=== PATIENT | female | born 1930 | race Caucasian/White ===

== ENCOUNTER 2016-08-16 00:11 | Emergency (ER) | payer MEDICARE, BC, MEDICAID ==
[2016-08-16 00:29] VITALS: BP 148/74
[2016-08-16] MEDS ORDERED: traMADol 50 MG Tab PO ONE (01:34)
[2016-08-16] MEDS ORDERED: Acetaminophen 325 MG Tab PO ONE (01:35)
--- NOTE | 2016-08-16 01:42 | EDM.PDOC ---
ED UPPER BACK/NECK PAIN/INJURY - General Chief Complaint: Back Pain or Injury Stated Complaint: COMING BY AMBULANCE Time Seen by Provider: 08/16/16 00:20 Source of Information: Reports: Patient History Limitations: Reports: No limitations - History of Present Illness INITIAL COMMENTS - FREE TEXT/NARRATIVE: Ed via [facility] with c/o right upper back pain, Reports bumped back on back of toilet 2 weeks ago and pain worse tonight, noted lump to area on back. Location: Reports: upper, paraspinal - Related Data Allergies/ADRs: Allergies Allergy/AdvReac Type Severity Reaction Status Date / Time acetaminophen Allergy Intermediate Nervousness Verified 08/16/16 00:13 [From Darvocet-N 100] propoxyphene napsylate Allergy Intermediate Nervousness Verified 08/16/16 00:13 [From Darvocet-N 100] amlodipine besylate Allergy Mild Nausea Verified 08/16/16 00:13 [From Norvasc] oxycodone HCl [From Percocet] Allergy Mild Nausea Verified 08/16/16 00:13 paroxetine HCl [From Paxil] Allergy Mild Nausea Verified 08/16/16 00:13 metaxalone [From Skelaxin] Allergy Nausea Verified 08/16/16 00:13 metaxalone Allergy Cannot Uncoded 08/16/16 00:13 Remember Home Meds: Home Meds Aspirin [Halfprin] 1 tab PO DAILY 09/07/13 [History] traMADol [Ultram] 1 - 2 tab PO Q8HR PRN 09/07/13 [History] Digoxin [Digox] 1 tab PO DAILY 03/04/14 [History] Rosuvastatin [Crestor] 20 mg PO BEDTIME 03/04/14 [History] Lutein/Minerals/Vit A,C & E [Ocuvite] 1 tab PO DAILY 11/02/14 [History] glipiZIDE [Glipizide ER] 5 mg PO DAILY 11/02/14 [History] Albuterol [Proair HFA] 2 puff INH Q6HR PRN 11/19/14 [History] Carvedilol [Coreg] 0.5 tab PO BIDMEALS 11/19/14 [History] LORazepam 1 tab PO BID PRN 11/19/14 [History] Omeprazole 1 cap PO ACBREAKFAST 04/03/15 [History] Warfarin Sodium [Jantoven] 1.5 mg PO ASDIRECTED 04/03/15 [History] Furosemide [Lasix] 60 tab PO BID 04/30/15 [History] Lisinopril [Prinivil] 1 tab PO DAILY 04/30/15 [History] Calcitriol [Rocaltrol] 1 tab PO DAILY 05/07/15 [History] Cinacalcet [Sensipar] 1 tab PO ASDIRECTED 05/07/15 [History] Moxifloxacin [Vigamox 0.5% Ophth Soln] 1 drop EYERT QID 05/07/15 [History] Carboxymethylcellulose Sodium [Refresh Tears] 1 drop EYEBOTH TID 07/23/15 [ History] Hydrocortisone [Anusol-HC] 1 squirt TOP DAILY PRN 07/23/15 [History] Acetaminophen [Mapap] 500 mg PO PRN 08/16/16 [History] Allopurinol [Zyloprim] 200 mg PO DAILY 08/16/16 [History] Morton-3/DHA/Epa/Fish Oil [Fish Oil 1,000 mg Softgel] 1 each PO DAILY 08/16/16 [ History] Past Medical History HEENT History: Reports: Cataract, Other (see below) Other HEENT History: Is on antibiodics for dental infection. Cardiovascular History: Reports: Afib, CAD, Cardiomyopathy, Heart Failure, High cholesterol, Hypertension, Other (see below) Other Cardiovascular History: Pt states she had "brief heart attack" during past hospital/ER admission. 11/18/14 Pt states she was just in [place] and had "some work done on my heart". Pt unsure exactly what was done. 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: Musculoskeletal History: Reports: Back pain, chronic Neurological History: Reports: Vertigo, Other (see below) Other Neuro History: CEREBROVASCULAR DISEASE Psychiatric History: Reports: Depression Endocrine/Metabolic History: Reports: Diabetes, type II, Hyperparathyroidism, Osteoporosis Hematologic History: Reports: None Immunologic History: Reports: None Oncologic (Cancer) History: Reports: None Dermatologic History: Reports: None - Past Surgical History HEENT Surgical History: Reports: Cataract surgery, Oral surgery GI Surgical History: Reports: Appendectomy, Cholecystectomy Female Surgical History: Reports: Tubal ligation Social & Family History - Family History Family Medical History: Noncontributory - Tobacco Use Smoking Status *Q: Former Smoker Years of Tobacco use: 50 Used Tobacco, but Quit: No Month Tobacco Last Used: 2-3 years ago Second Hand Smoke Exposure: No - Caffeine Use Caffeine Use: Reports: Coffee, Soda - Alcohol Use Days Per Week of Alcohol Use: 0 - Recreational Drug Use Recreational Drug Use: No - Living Situation & Occupation Living situation: Reports: , alone Occupation: retired ED ROS GENERAL - Review of Systems Review Of Systems: ROS reveals no pertinent complaints other than HPI. ED EXAM, UPPER BACK/NECK PAIN - Physical Exam Exam: See Below Exam Limited By: No limitations General Appearance: alert, mild distress (with movement) Eye Exam: bilateral eye: EOMI Ears Exam: normal external exam Nose Exam: normal inspection Throat/Mouth Exam: Normal inspection Head Exam: atraumatic, normocephalic Neck Exam: non-tender, full range of motion GI/Abdominal: normal bowel sounds, soft Back Exam: muscle spasm, paraspinal tenderness, other ([id number] tender raised area right medial lower scapular arear tender to palpation, slight posterior rib pain with palpation, no bruising visible. ). No: vertebral tenderness Extremities: normal inspection, normal range of motion Neurologic: no motor/sensory deficits, alert, normal mood/affect, oriented x 3 Psychiatric: normal affect, normal mood Skin Exam: Normal color, Warm/dry. No: Ecchymosis Course - Vital Signs Last Recorded V/S: Last Vital Signs Temp 97.4 F 08/16/16 00:15 Pulse 66 08/16/16 00:15 Resp 20 08/16/16 00:15 BP 148/74 H 08/16/16 00:15 Pulse Ox 99 08/16/16 00:15 - Orders/Labs/Meds Meds: Medications Discontinued Medications Generic Name Dose Route Start Last Admin Trade Name Freq PRN Reason Stop Dose Admin Acetaminophen 325 mg 08/16/16 01:35 08/16/16 01:45 Tylenol PO 08/16/16 01:36 325 mg NOW ONE Administration Tramadol HCl 50 mg 08/16/16 01:34 08/16/16 01:44 Ultram PO 08/16/16 01:35 50 mg ONETIME ONE Administration - Radiology Interpretation Free Text/Narrative:: no thoracic or rib fractures Departure - Departure Time of Disposition: 01:36 Disposition: Home, Self-Care 01 Condition: good Clinical Impression: Rib pain on right side Thoracic back pain Qualifiers: Chronicity: acute Back pain laterality: right Qualified Code(s): M54.6 - Pain in thoracic spine Contusion Qualifiers: Encounter type: initial encounter Contusion area: thoracic wall Contusion of thoracic wall detail: back wall of thorax Laterality: right Qualified Code(s): S20.221A - Contusion of right back wall of thorax, initial encounter Forms: ED Department Discharge Additional Instructions: may use heat to aback and rib area for comfort. tylenol 325mg with Tramadol 50mg -100mg every 8 hours as needed Not to exceed 3000mg tylenol / 24 hours
== END 2016-08-16 01:47 | disposition home or self-care (01) ==
LOC: DL.ED 00:11
DX: S20.221A Contusion of right back wall of thorax, initial encounter (principal); R07.81 Pleurodynia; I48.91 Unspecified atrial fibrillation; I25.10 Atherosclerotic heart disease of native coronary artery without angina pectoris; E78.00 Pure hypercholesterolemia, unspecified; I13.0 Hypertensive heart and chronic kidney disease with heart failure and stage 1 through stage 4 chronic kidney disease, or unspecified chronic kidney disease; N18.3 Chronic kidney disease, stage 3 (moderate); I50.9 Heart failure, unspecified; K21.9 Gastro-esophageal reflux disease without esophagitis; F32.9 Major depressive disorder, single episode, unspecified; E11.9 Type 2 diabetes mellitus without complications; Z98.49 Cataract extraction status, unspecified eye; Z98.890 Other specified postprocedural states; Z90.49 Acquired absence of other specified parts of digestive tract; Z98.51 Tubal ligation status; Z79.82 Long term (current) use of aspirin; Z79.899 Other long term (current) drug therapy; Z88.6 Allergy status to analgesic agent; Z88.8 Allergy status to other drugs, medicaments and biological substances; Z87.891 Personal history of nicotine dependence; W19.XXXA Unspecified fall, initial encounter
CPT/HCPCS: 71250; 99284; A9270; 99283

== ENCOUNTER 2019-08-21 21:36 | Emergency (ER) | payer MEDICARE, BC, MEDICAID ==
[2019-08-21 21:46] VITALS: PULSE 95
[2019-08-21] MEDS ORDERED: Sodium Chloride 0.9% 1,000 ML IV ONE (22:02)
[2019-08-21] MEDS ORDERED: Pantoprazole 40 MG Vial IVPUSH ONE (22:03)
[2019-08-21 22:23] LABS: ANION GAP 15.1 mEq/L (7-13)
--- NOTE | 2019-08-21 22:27 | EDM.PDOC ---
ED HPI GENERAL MEDICAL PROBLEM - General Chief Complaint: Gastrointestinal Problem Stated Complaint: AMBULANCE Time Seen by Provider: 08/21/19 21:42 Source of Information: Reports: Patient, EMS History Limitations: Reports: No Limitations - History of Present Illness INITIAL COMMENTS - FREE TEXT/NARRATIVE: ED per [facility] with report of feeling week and black tarry stool this alyssa. Patient states started with black stools on Tues and told nursing at [facility]. Had 3 stools today, Weak after last. No chest pain, Slight Sob today, No cough No fever, No prior episodes. last colonoscopy more than 20 years ago. Decreased appetite, but trying to eat. intermittent abdominal pain around umbilicus around 2pm if she doesn't eat. - Related Data Allergies Allergy/AdvReac Type Severity Reaction Status Date / Time acetaminophen Allergy Intermediate Nervousness Verified 08/21/19 21:40 [From Darvocet-N 100] propoxyphene napsylate Allergy Intermediate Nervousness Verified 08/21/19 21:40 [From Darvocet-N 100] amlodipine besylate Allergy Mild Nausea Verified 08/21/19 21:40 [From Norvasc] oxycodone HCl [From Percocet] Allergy Mild Nausea Verified 08/21/19 21:40 paroxetine HCl [From Paxil] Allergy Mild Nausea Verified 08/21/19 21:40 metaxalone [From Skelaxin] Allergy Nausea Verified 08/21/19 21:40 metaxalone Allergy Cannot Uncoded 08/21/19 21:40 Remember Home Meds: Home Meds Aspirin [Halfprin] 1 tab PO DAILY 09/07/13 [History] traMADol [Ultram] 1 - 2 tab PO Q8HR PRN 09/07/13 [History] Digoxin [Digox] 1 tab PO DAILY 03/04/14 [History] Rosuvastatin [Crestor] 20 mg PO BEDTIME 03/04/14 [History] Lutein/Minerals/Vit A,C & E [Ocuvite] 1 tab PO DAILY 11/02/14 [History] glipiZIDE [Glipizide ER] 5 mg PO DAILY 11/02/14 [History] Carvedilol [Coreg] 1 tab PO BIDMEALS 11/19/14 [History] Warfarin Sodium [Jantoven] 2 mg PO ASDIRECTED 12/09/15 [History] Furosemide [Lasix] 60 tab PO BID 04/30/15 [History] Lisinopril [Prinivil] 2 tab PO DAILY 04/30/15 [History] Cinacalcet [Sensipar] 1 tab PO ASDIRECTED 05/07/15 [History] calcitrioL [Rocaltrol] 1 tab PO DAILY 05/07/15 [History] Carboxymethylcellulose Sodium [Refresh Tears] 1 drop EYEBOTH DAILY 07/23/15 [ History] Hydrocortisone [Anusol-HC] 1 squirt TOP DAILY PRN 07/23/15 [History] Allopurinol [Zyloprim] 200 mg PO DAILY 08/16/16 [History] Acetaminophen [Tylenol] 650 mg PO Q4H PRN 08/21/19 [History] Furosemide [Lasix] 40 mg PO DAILY 08/21/19 [History] Insulin Detemir [Levemir] 7 units SQ BEDTIME 08/21/19 [History] Melatonin 5 mg PO BEDTIME 08/21/19 [History] Menthol [Biofreeze] 1 applic TOP ASDIRECTED PRN 08/21/19 [History] Triamcinolone Acetonide [Triamcinolone Acetonide 0.1% Crm] 1 applic TOP ASDIRECTED 08/21/19 [History] Warfarin Sodium [Coumadin] 2.5 mg PO ASDIRECTED 08/21/19 [History] Past Medical History HEENT History: Reports: Cataract, Other (See Below) Other HEENT History: Is on antibiodics for dental infection. Cardiovascular History: Reports: Afib, CAD, Cardiomyopathy, Heart Failure, High Cholesterol, Hypertension, Other (See Below) Other Cardiovascular History: Pt states she had "brief heart attack" during past hospital/ER admission. 11/18/14 Pt states she was just in [place] and had "some work done on my heart". Pt unsure exactly what was done. 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: Musculoskeletal History: Reports: Back Pain, Chronic Neurological History: Reports: Vertigo, Other (See Below) Other Neuro History: CEREBROVASCULAR DISEASE Psychiatric History: Reports: Depression Endocrine/Metabolic History: Reports: Diabetes, Type II, Hyperparathyroidism, Osteoporosis Hematologic History: Reports: None Immunologic History: Reports: None Oncologic (Cancer) History: Reports: None Dermatologic History: Reports: None - Past Surgical History HEENT Surgical History: Reports: Cataract Surgery, Oral Surgery GI Surgical History: Reports: Appendectomy, Cholecystectomy Female Surgical History: Reports: Tubal Ligation Social & Family History - Family History Family Medical History: Noncontributory - Tobacco Use Smoking Status *Q: Former Smoker Used Tobacco, but Quit: Yes Month/Year Tobacco Last Used: 07/2014 - Caffeine Use Caffeine Use: Reports: Coffee - Recreational Drug Use Recreational Drug Use: No - Living Situation & Occupation Living situation: Reports: , Alone Occupation: Retired ED ROS GENERAL - Review of Systems Review Of Systems: See Below Constitutional: Reports: Weakness, Decreased Appetite. Denies: Fever, Chills, Malaise HEENT: Reports: No Symptoms Respiratory: Reports: Shortness of Breath Cardiovascular: Reports: Lightheadedness. Denies: Chest Pain Endocrine: Reports: No Symptoms GI/Abdominal: Reports: Abdominal Pain Musculoskeletal: Reports: No Symptoms Skin: Reports: No Symptoms Neurological: Reports: No Symptoms ED EXAM, GI/ABD - Physical Exam Exam: See Below Exam Limited By: No Limitations General Appearance: Alert, Thin Eyes: Bilateral: EOMI Ears: Normal External Exam, Hearing Grossly Normal Nose: Normal Inspection Throat/Mouth: Normal Inspection Head: Atraumatic, Normocephalic Neck: Normal Inspection Respiratory/Chest: No Respiratory Distress, Lungs Clear, Normal Breath Sounds Cardiovascular: Normal Peripheral Pulses, Regular Rate, Rhythm GI/Abdominal Exam: Normal Bowel Sounds, Soft, Other (mild lower epigastric with deep palpation) Rectal (Female) Exam: Heme + Stool Extremities: Normal Inspection Neurological: Alert, Oriented, Normal Cognition Psychiatric: Normal Affect Skin Exam: Warm, Intact, Pallor Course - Vital Signs Last Recorded V/S: Last Vital Signs Temp 97.5 F 08/21/19 22:47 Pulse 95 08/21/19 22:47 Resp 19 08/21/19 22:47 BP 77/41 L 08/21/19 22:47 Pulse Ox 99 08/21/19 22:47 - Orders/Labs/Meds Orders: Active Orders 24 hr Category Date Time Status EKG 12 Lead [EKG Documentation Completion] [RC] URGENT Care 08/21/19 21:55 Active CULTURE BLOOD [BC] Stat Lab 08/21/19 21:54 Received Blood Culture x2 Reflex Set [OM.PC] Stat Oth 08/21/19 21:37 Ordered Transfuse Red Blood Cells [COMM] Urgent Oth 08/21/19 22:33 Ordered Labs: Laboratory Tests 08/21/19 08/21/19 08/21/19 Range/Units 21:54 21:54 21:54 WBC 11.9 H (5.0-10.0) 10^3/uL RBC 2.33 L (4.2-5.4) 10^6/uL Hgb 7.4 L D (12.0-16.0) g/dL Hct 22.5 L (37.0-47.0) % MCV 96.6 (80-100) fL MCH 31.8 (27.0-34.0) pg MCHC 32.9 L (33.0-35.0) g/dL Plt Count 152 (150-450) 10^3/uL Neut % (Auto) 76.7 H (42.2-75.2) % Lymph % (Auto) 14.2 L (20.5-50.1) % [place] % (Auto) 6.4 (2-8) % Eos % (Auto) 2.3 (1.0-3.0) % Baso % (Auto) 0.4 (0.0-1.0) % PT 81.6 H D (9.0-12.0) SEC INR 8.8 H* (0.9-1.2) Sodium 132 L (136-145) mmol/L Potassium 5.1 (3.5-5.1) mmol/L Chloride 99 (98-107) mmol/L Carbon Dioxide 23 (21-32) mmol/L Anion Gap 15.1 H (7-13) mEq/L BUN 133 H (7-18) mg/dL Creatinine 1.91 H (0.55-1.02) mg/dL Est Cr Clr Drug Dosing 15.79 mL/min Estimated GFR (MDRD) 25 BUN/Creatinine Ratio 69.6 (No establ ref range) Glucose 262 H (74-99) mg/dL Lactic Acid (0.4-2.0) mmol/L Calcium 8.4 L (8.5-10.1) mg/dL Total Bilirubin 0.4 (0.2-1.0) mg/dL AST 11 L (15-37) U/L ALT 21 (14-59) U/L Alkaline Phosphatase 42 L (46-116) U/L Troponin I 0.068 H* (0.000-0.056) ng/mL B-Natriuretic Peptide 146 H (0-100) pg/ml Total Protein 5.5 L (6.4-8.2) g/dL Albumin 3.0 L (3.4-5.0) g/dL Globulin 2.5 Albumin/Globulin Ratio 1.20 Amylase 79 (25-115) U/L Lipase 370 (73-393) U/L Digoxin (0.9-2.0) ng/mL Blood Type Gel Antibody Screen Crossmatch 08/21/19 08/21/19 08/21/19 Range/Units 21:54 21:54 21:54 WBC (5.0-10.0) 10^3/uL RBC (4.2-5.4) 10^6/uL Hgb (12.0-16.0) g/dL Hct (37.0-47.0) % MCV (80-100) fL MCH (27.0-34.0) pg MCHC (33.0-35.0) g/dL Plt Count (150-450) 10^3/uL Neut % (Auto) (42.2-75.2) % Lymph % (Auto) (20.5-50.1) % [place] % (Auto) (2-8) % Eos % (Auto) (1.0-3.0) % Baso % (Auto) (0.0-1.0) % PT (9.0-12.0) SEC INR (0.9-1.2) Sodium (136-145) mmol/L Potassium (3.5-5.1) mmol/L Chloride (98-107) mmol/L Carbon Dioxide (21-32) mmol/L Anion Gap (7-13) mEq/L BUN (7-18) mg/dL Creatinine (0.55-1.02) mg/dL Est Cr Clr Drug Dosing mL/min Estimated GFR (MDRD) BUN/Creatinine Ratio (No establ ref range) Glucose (74-99) mg/dL Lactic Acid 1.6 (0.4-2.0) mmol/L Calcium (8.5-10.1) mg/dL Total Bilirubin (0.2-1.0) mg/dL AST (15-37) U/L ALT (14-59) U/L Alkaline Phosphatase (46-116) U/L Troponin I (0.000-0.056) ng/mL B-Natriuretic Peptide (0-100) pg/ml Total Protein (6.4-8.2) g/dL Albumin (3.4-5.0) g/dL Globulin Albumin/Globulin Ratio Amylase (25-115) U/L Lipase (73-393) U/L Digoxin 1.7 (0.9-2.0) ng/mL Blood Type A POSITIVE Gel Antibody Screen Negative Crossmatch See Detail Meds: Medications Discontinued Medications Generic Name Dose Route Start Last Admin Trade Name Freq PRN Reason Stop Dose Admin Sodium Chloride 1,000 mls @ 999 mls/hr 08/21/19 22:02 08/21/19 22:10 Normal Saline IV 08/21/19 23:02 999 mls/hr .BOLUS ONE Administration Norepinephrine Bitartrate 4 mg 250 mls @ 7.5 mls/hr 08/21/19 22:30 08/21/19 22:29 / Dextrose/Water IV 2 mcg/min TITRATE RUDI 7.5 mls/hr Administration Protocol 2 MCG/MIN Pantoprazole Sodium 40 mg 08/21/19 22:03 08/21/19 22:13 Protonix Iv IVPUSH 08/21/19 22:04 40 mg ONETIME ONE Administration Phytonadione Confirm 08/21/19 22:53 08/21/19 22:59 Aquamephyton Administered 08/21/19 22:54 2.5 mg Dose Administration 10 mg .ROUTE .STK-MED ONE Departure - Departure Time of Disposition: 23:00 Disposition: DC/Tfer to Acute Hospital 02 Condition: Undetermined Clinical Impression: Elevated INR Gastrointestinal bleed Qualifiers: GI bleed type/associated pathology: unspecified gastrointestinal hemorrhage type Qualified Code(s): K92.2 - Gastrointestinal hemorrhage, unspecified Afib Qualifiers: Atrial fibrillation type: longstanding persistent Qualified Code(s): I48.11 - Longstanding persistent atrial fibrillation - Discharge Information Referrals: PCP,None [Primary Care Provider] - Forms: ED Department Discharge Sepsis Event Note - Evaluation Sepsis Screening Result: No Definite Risk - Focused Exam Vital Signs: Vital Signs Temp Temp Pulse Resp BP Pulse Ox 08/21/19 22:47 97.5 F 95 19 77/41 L 99 08/21/19 21:45 97 F 95 24 H 117/91 H 100 Date Exam was Performed: 08/22/19 Time Exam was Performed: 06:28 - My Orders Last 24 Hours: My Active Orders 08/21/19 21:37 Blood Culture x2 Reflex Set [OM.PC] Stat 08/21/19 21:54 CULTURE BLOOD [BC] Stat 08/21/19 21:55 EKG 12 Lead [EKG Documentation Completion] [RC] URGENT 08/21/19 22:33 Transfuse Red Blood Cells [COMM] Urgent - Assessment/Plan Last 24 Hours: My Active Orders 08/21/19 21:37 Blood Culture x2 Reflex Set [OM.PC] Stat 08/21/19 21:54 CULTURE BLOOD [BC] Stat 08/21/19 21:55 EKG 12 Lead [EKG Documentation Completion] [RC] URGENT 08/21/19 22:33 Transfuse Red Blood Cells [COMM] Urgent
[2019-08-21] MEDS ORDERED: Norepinephrine 4 MG in Dextrose 5% in Water 246 ML IV SCH ×2 (22:30)
[2019-08-21 22:49] VITALS: BP 77/41
== END 2019-08-21 23:03 ==
LOC: DL.ED 21:36
DX: K92.2 Gastrointestinal hemorrhage, unspecified (principal); I48.11 Longstanding persistent atrial fibrillation; R79.1 Abnormal coagulation profile; I48.91 Unspecified atrial fibrillation; I25.10 Atherosclerotic heart disease of native coronary artery without angina pectoris; E78.00 Pure hypercholesterolemia, unspecified; I13.0 Hypertensive heart and chronic kidney disease with heart failure and stage 1 through stage 4 chronic kidney disease, or unspecified chronic kidney disease; I50.9 Heart failure, unspecified; N18.3 Chronic kidney disease, stage 3 (moderate); K21.9 Gastro-esophageal reflux disease without esophagitis; F32.9 Major depressive disorder, single episode, unspecified; E11.22 Type 2 diabetes mellitus with diabetic chronic kidney disease; Z88.6 Allergy status to analgesic agent; Z88.8 Allergy status to other drugs, medicaments and biological substances; Z88.5 Allergy status to narcotic agent; Z79.82 Long term (current) use of aspirin; Z79.84 Long term (current) use of oral hypoglycemic drugs; Z79.01 Long term (current) use of anticoagulants; Z79.899 Other long term (current) drug therapy; Z87.891 Personal history of nicotine dependence
CPT/HCPCS: 36415; 36430; 80053; 80162; 82150; 82272; 83605; 83690; 83880; 84484; 85025; 85610; 86850; 86900; 86901; 86920; 86922; 87040; 93005; 96365; 99285; C9113; J3430; J7030; J7060; P9016